=== PATIENT | female | born 1950 | race Caucasian/White ===

== ENCOUNTER 2022-09-10 11:53 | Emergency (ER) | payer MEDICARE, OTHER ==
[~2022-09-10] VITALS: Ht 170.2 cm; Wt 80.3 kg
[2022-09-10] MEDS ORDERED: AMLO5 PO (12:44)
[2022-09-10] MEDS ORDERED: BUPR150ER PO (12:44)
[2022-09-10] MEDS ORDERED: ALBU90OI INH (12:44)
[2022-09-10] MEDS ORDERED: LOSARTAN-HCTZ1 EACH PO (12:45)
[2022-09-10] MEDS ORDERED: CARBIDOPA-LEVO1 EA19 PO (12:45)
[2022-09-10] MEDS ORDERED: ESOM20 PO (12:45)
[2022-09-10] MEDS ORDERED: MELATONIN5 M1 PO (12:46)
[2022-09-10] MEDS ORDERED: VENLAFAXINE HC150 M2 PO (12:46)
[2022-09-10] MEDS ORDERED: ZOCOR20 MG PO (12:46)
[2022-09-10] MEDS ORDERED: WARF5 PO (12:48)
[2022-09-10 12:49] LABS: Source, Urine Clean Catch
[2022-09-10 13:02] LABS: BASOPHILS ABSOLUTE AUTO 0.04 K/mm3 (0.00-0.23); BASOPHILS PERCENT AUTO 1 % (0-2); EOSINOPHILS ABSOLUTE AUTO 0.02 K/mm3 (0.00-0.68); EOSINOPHILS PERCENT AUTO 0 % (0-6); Hematocrit 39.2 % (33.0-51.0); Hemoglobin 13.1 g/dL (11.5-16.0); IMMATURE GRAN ABSOLUTE AUTO 0.01 K/mm3 (0.00-0.10); IMMATURE GRAN PERCENT AUTO 0 % (0-1); LYMPHOCYTES ABSOLUTE AUTO 2.24 K/mm3 (0.84-5.20); LYMPHOCYTES PERCENT AUTO 41 % (21-46); MONOCYTES ABSOLUTE AUTO 0.58 K/mm3 (0.16-1.47); MONOCYTES PERCENT AUTO 11 % (4-13); Mean Corpuscular HGB 28.7 pg (26.0-34.0); Mean Corpuscular HGB Conc 33.4 g/dL (31.5-36.5); Mean Corpuscular Volume 86 fL (80-100); Mean Platelet Volume 10.6 fL (9.1-12.4); NEUTROPHILS ABSOLUTE AUTO 2.59 K/mm3 (1.96-9.15); NEUTROPHILS PERCENT AUTO 47 % (41-73); Platelet Count 318 K/mm3 (150-400); RDW Coefficient Variation 13.8 % (11.7-14.2); RDW Standard Deviation 43.7 fL (35.1-46.3); Red Blood Cell Count 4.56 M/mm3 (3.80-5.20); White Blood Cell Count 5.48 K/mm3 (4.00-11.30)
[2022-09-10 13:04] LABS: Albumin, Blood 3.9 g/dL (3.4-5.0); Albumin/Globulin Ratio 1.1 (0.8-1.8); Bilirubin, Total 0.5 mg/dL (0.1-1.0); Bun/Creatinine Ratio 14.6 (12.0-20.0); Calcium, Blood 9.3 mg/dL (8.5-10.1); Creatinine, Blood 0.82 mg/dL (0.40-1.00); Globulin, Blood 3.4 g/dL (2.2-4.0); Potassium, Blood 2.9 mmol/L (3.5-5.5); Total Protein, Blood 7.3 g/dL (6.4-8.2)
[2022-09-10 13:11] LABS: Appearance, Urine Clear (Clear); Bilirubin, Urine Neg (Neg); Blood, Urine 1+ (Neg); Color, Urine Yellow (P-Yellow); Glucose Qualitative, Urine Neg (Neg); Ketones, Urine Neg (Neg); Leukocyte Esterase, Urine 1+ (Neg); Nitrite, Urine Neg (Neg); Protein, Urine Neg (Neg); Urobilinogen, Urine NORM (Normal)
[2022-09-10 13:28] LABS: White Blood Cells, Urine 0-2 /hpf (0-5)
[2022-09-10 13:29] LABS: Squamous Epithelial Cells Rare /hpf (Few)
[2022-09-10 13:30] LABS: Bacteria Rare /hpf
[2022-09-10] MEDS ORDERED: DICY20 PO (15:11)
[2022-09-10] MEDS ORDERED: SIME80CH PO (15:11)
[2022-09-10] MEDS ORDERED: ONDA4ODT MM (15:11)
[2022-09-10 15:26] LABS: International Normalized Ratio 2.45; Prothrombin Time Results 24.3 Sec (9.7-11.5)
[2022-09-10 15:41] LABS: Influenza A, PCR NEGATIVE (NEGATIVE); Influenza B, PCR NEGATIVE (NEGATIVE); Resp Syncytial Virus, PCR NEGATIVE (NEGATIVE); SARS-Cov-2 (COVID-19) PCR, MMC NEGATIVE (NEGATIVE)
== END 2022-09-10 18:46 | disposition home or self-care (01) ==
LOC: ER 11:53
PROVIDERS: Physician Assistant; Student in an Organized Health Care Education/Training Program
DX: R10.9 Unspecified abdominal pain (principal); I82.411 Acute embolism and thrombosis of right femoral vein; E87.6 Hypokalemia; I10 Essential (primary) hypertension; G20 Parkinson's disease; Z88.2 Allergy status to sulfonamides; Z79.899 Other long term (current) drug therapy; Z79.01 Long term (current) use of anticoagulants
CPT/HCPCS: 0241U; 71046; 74177; 80053; 81001; 83690; 83735; 85025; 85610; 87086; 93005; 93010; 93971; 96365-59; 96366; 96375; 99285-25; A9270; J1885; J2405; J3480; J7030; J7050; Q9967

== ENCOUNTER → 2022-09-10 | Outpatient (CLI) | payer MEDICARE, OTHER ==
[~2022-09-10] MED LIST: ALBU90OI INH; AMLO5 PO; BUPR150ER PO; CARBIDOPA-LEVO1 EA19 PO; DICY20 PO; ESOM20 PO; LOSARTAN-HCTZ1 EACH PO; MELATONIN5 M1 PO; ONDA4ODT MM; SIME80CH PO; VENLAFAXINE HC150 M2 PO; WARF5 PO; ZOCOR20 MG PO
== END ==
LOC: LAB SHORT 10:45 → LAB 10:45
DX: R30.0 Dysuria (principal)
CPT/HCPCS: 87086